=== PATIENT | female | born 1955 | race Caucasian/White ===

== ENCOUNTER 2016-12-15 13:15 | Outpatient (CLI) | payer OTHER ==
[~2016-12-15 13:15] MED LIST: ACETAMINOPHEN500 MG PO; ALEVE220 MG PO; ASPIRIN EC81 MG PO; LOSARTAN POTASS25 MG PO; METFORMIN HCL500 MG PO; MULTI FOR HER 50+; OMEPRAZOLE20 M1 PO; PERCOCET1 TA4 PO; PRAVACHOL40 MG PO; PROZAC40 MG PO; ZOFRAN4 MG PO
--- NOTE | 2016-12-15 15:25 | DIAGNOSTIC IMAGING REPORT ---
PROCEDURE: ABDOMEN/PELVIS WITH CONTRAST CLINICAL INDICATION: LLQ ABD PAIN,DIVERTICULITIS TECHNIQUE: 125 ml of Isovue 300 were injected intravenously and axial images were obtained of the abdomen and pelvis with sagittal and coronal reformations. COMPARISON: None. FINDINGS: ABDOMEN: Very mild pericolonic inflammation adjacent to the mid descending colon. No extraluminal gas or adjacent fluid. Cholecystectomy. Nonenlarged retroperitoneal lymph nodes present. Occasional diverticula in the transverse colon. Mild diverticula in the descending colon. Clear lung bases. Normal sized heart. No hiatal hernia. The liver, adrenal glands, right kidney, pancreas and spleen are normal. 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 The abdominal aorta is normal in its course and caliber. No atherosclerosis. There are no suspicious calcifications, or masses. The stomach, upper small bowel loops, and mesentery are normal. PELVIS: Surgically absent uterus and ovaries. Mild sigmoid diverticulosis. The appendix and pelvic small bowel loops are normal. The urinary bladder, and pelvic vessels are normal. No adenopathy, free fluid, or pelvic mass. Severe degenerative disc changes with vacuum phenomenon throughout the lumbar spine. Mild lumbar scoliosis. Osseous degenerative spurring at the L3-4 and L4-5 levels result in moderate central canal stenosis. IMPRESSION: 1. Changes of very mild mid descending colon diverticulitis without complication. 2. Mild diverticulosis elsewhere in the colon. 3. Status post cholecystectomy and hysterectomy. 4. 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 5. Findings called to Ami Waggoner. All CT scans at this facility use dose modulation, iterative reconstruction, and/or weight-based dosing when appropriate to reduce radiation dose to as low as reasonably achievable.
== END 2016-12-15 23:00 ==
LOC: CT SRH 13:15
DX: K57.30 Diverticulosis of large intestine without perforation or abscess without bleeding (principal)
CPT/HCPCS: 90074; 90100